=== PATIENT | female | born 1965 | race Hispanic/Latino ===

== ENCOUNTER 2018-05-10 09:41 | Emergency (ER) | payer SELFPAY | END 2018-05-10 10:20 | disposition home or self-care (01) | LOC: NAV ERS 09:41 | DX: R05 Cough (principal); R09.81 Nasal congestion; H10.9 Unspecified conjunctivitis; G43.909 Migraine, unspecified, not intractable, without status migrainosus; K21.9 Gastro-esophageal reflux disease without esophagitis; J45.909 Unspecified asthma, uncomplicated; F17.210 Nicotine dependence, cigarettes, uncomplicated; Z79.899 Other long term (current) drug therapy | CPT/HCPCS: 99283 ==

== ENCOUNTER 2018-07-23 13:21 | Emergency (ER) | payer SELFPAY ==
[2018-07-23] MEDS ORDERED: Ketorolac Tromethamine 60 MG/2 ML VIAL ONE (14:24)
[2018-07-23] MEDS ORDERED: HYDROcodone/Acetaminophen 10/325 mg Tablet ONE (14:24)
--- NOTE | 2018-07-23 15:36 | RAD ---
3 VIEW LEFT SHOULDER: Date: 07/23/18 INDICATION: Chronic pain. FINDINGS: There is moderate osteoarthritis. No fracture or dislocation. IMPRESSION: 1. No acute osseous abnormality of the left shoulder. 2. Osteoarthritis. POS: [facility]
--- NOTE | 2018-07-23 15:37 | CT ---
CT HEAD WITHOUT CONTRAST: Date: 07/23/18 Multiple axial tomograms obtained through the head without IV enhancement. INDICATION: Neck and head pain. FINDINGS: Ventricles have normal size and position. No evidence of mass, hemorrhage, infarct, or edema. Sinuses and mastoids are aerated. IMPRESSION: Unremarkable head CT. POS: [facility]
--- NOTE | 2018-07-23 15:52 | CT ---
CT CERVICAL SPINE: Date: 07/23/18 Multiple axial tomograms obtained through the cervical spine with multiplanar reconstruction. INDICATION: Neck pain. FINDINGS: Cervical vertebra maintain normal height and alignment. There are degenerative changes in the mid cer vical spine with osteophytes seen at C5-6 and C6-7. There is no evidence of cervical spine fractur e. Mild posterior spondylosis seen at C3-4, C4-5, and C5-6. Central spur at C5-6 impinges on the ante rior cord. IMPRESSION: Degenerative changes with spondylosis at C4-5, C5-6, and C6-7 as described. POS: [facility]
== END 2018-07-23 15:55 | disposition home or self-care (01) ==
LOC: NAV ERS 13:21
DX: M75.92 Shoulder lesion, unspecified, left shoulder (principal); K21.9 Gastro-esophageal reflux disease without esophagitis; J45.909 Unspecified asthma, uncomplicated; F41.9 Anxiety disorder, unspecified; F17.210 Nicotine dependence, cigarettes, uncomplicated; Z79.899 Other long term (current) drug therapy
CPT/HCPCS: 70450; 72125; 96372; J1885